=== PATIENT | female | born 1960 | race Two or more races ===

== ENCOUNTER → 2019-09-15 | Outpatient (REF) | payer BC | LOC: M SFHCWAGY 09:42 | PROVIDERS: ATTEND Nurse Practitioner Family | DX: Z12.4 Encounter for screening for malignant neoplasm of cervix (principal); R87.613 High grade squamous intraepithelial lesion on cytologic smear of cervix (HGSIL) | CPT/HCPCS: 87624; G0123 ==

== ENCOUNTER → 2019-09-15 | Outpatient (CLI) | payer BC ==
--- NOTE | 2019-09-15 17:15 | REPMRS ---
Patient History The patient states she had a clinical breast exam in September 2019. Patient is postmenopausal. Family history of unknown cancer in father. Digital Woman Screen Mammo: September 15, 2019 - Exam #: [id number] Bilateral CC and MLO view(s) were taken. Technologist: Susi Arvizu, Technologist No prior studies available for comparison. FINDINGS: There are scattered fibroglandular densities. There is no evidence of dominant mass, architectural distortion, or grouped microcalcification typical of malignancy. 3-D tomosynthesis shows no additional findings. Assessment: BI-RADS/ACR category 1 mammogram. Negative Mammogram. Recommendation Routine screening mammogram of both breasts in 1 year (for women over age 40). This patient's Lifetime Breast Cancer RIsk is estimated at 5.0 %. This mammogram was interpreted with the aid of an FDA-approved computer-aided dectection system. Electronically Signed By: Nelson El MD 09/15/19 1974
== END ==
LOC: M WHC 13:56
PROVIDERS: ATTEND Nurse Practitioner Family
DX: Z12.31 Encounter for screening mammogram for malignant neoplasm of breast (principal); Z78.0 Asymptomatic menopausal state

== ENCOUNTER → 2019-11-16 | Outpatient (REF) | payer BC | LOC: M SFHCWAGY 07:48 | PROVIDERS: ATTEND Obstetrics & Gynecology | DX: R87.613 High grade squamous intraepithelial lesion on cytologic smear of cervix (HGSIL) (principal) ==

== ENCOUNTER → 2020-01-25 | Outpatient (CLI) | payer BC ==
[~2020-01-25] MED LIST: BENA25CA4 PO
== END ==
LOC: M LABSMTC 12:35
PROVIDERS: ATTEND Anesthesiology
DX: Z01.818 Encounter for other preprocedural examination (principal); Z11.59 Encounter for screening for other viral diseases
CPT/HCPCS: C9803; U0002

== ENCOUNTER 2020-01-29 11:06 | Day surgery (SDC) | payer BC ==
[~2020-01-29] VITALS: Ht 149.9 cm; Wt 56.2 kg
[~2020-01-29 11:06] MED LIST changes: -BENA25CA4 PO; +LR 1,000 ML IV ONE
[2020-01-29] MEDS ORDERED: BENA25CA4 PO (11:46)
[2020-01-29 11:47] LABS: HEMATOCRIT 43.3 % (36.0-47.0); HEMOGLOBIN 13.9 g/dl (12.0-15.5); MEAN CORPUSCULAR HEMOGLOBIN 27.5 pg (27.0-33.0); MEAN CORPUSCULAR HGB CONC 32.1 g/dl (32.0-36.5); MEAN CORPUSCULAR VOLUME 85.7 fl (80.0-96.0); PLATELET COUNT, AUTOMATED 296 10^3/uL (150-450); RED BLOOD COUNT 5.05 10^6/uL (4.00-5.40); WHITE BLOOD COUNT 6.7 10^3/uL (4.0-10.0)
[2020-01-29] MEDS ORDERED: propofoL 200 MG/20 ML VIAL As Ordered ONE (12:46)
[2020-01-29] MEDS ORDERED: LIDOCAINE 2% 100MG/5ML SDV (FOR ANES.) As Ordered ONE (12:46)
[2020-01-29] MEDS ORDERED: fentaNYL 100 MCG/2 ML INJECTION (J3010) As Ordered ONE (12:47)
[2020-01-29] MEDS ORDERED: MIDAZOLAM INJ 2MG/2ML VIAL (J2250 PER 1MG) As Ordered ONE (12:47)
[2020-01-29] MEDS ORDERED: LIDOCAINE W/EPINEPHRINE 1% 20ML VIAL As Ordered ONE (13:10)
[2020-01-29] MEDS ORDERED: IODINE STRONG SOLN 15 ML BTL As Ordered ONE (13:11)
--- NOTE | 2020-01-29 13:27 | ROOPDOC ---
[facility] Report Of Operation Report of Operation DATE OF PROCEDURE: 01/29/20 PREOPERATIVE DIAGNOSIS: Cervical dysplasia. POSTOPERATIVE DIAGNOSIS: Cervical dysplasia. PROCEDURE PERFORMED: Loop electrosurgical excision procedure (LEEP). SURGEON: Lucita Baxter MD DIRECTOR NURSES' REGISTRY: None. ANESTHESIA: General. ESTIMATED BLOOD LOSS: 5 mL. INTRAVENOUS FLUIDS: 600 mL of Lactated Ringer's solution. URINE OUTPUT: Not obtained. PREOPERATIVE ANTIBIOTICS: None. OPERATIVE FINDINGS: Patient with atrophic appearing cervix, completely flush to the vagina. SPECIMENS: Cervical LEEP biopsy. DESCRIPTION OF OPERATION: After informed consent was obtained and written consent was reviewed, the patient was brought to the operating room where general anesthesia was obtained. She was then placed in lithotomy position. A time out in the operating room was then performed identifying the patient, procedure to be performed as well as drug allergies. A bivalve speculum was then placed revealing the cervix. The anterior lip of the cervix was grasped with a insulated single tooth tenaculum. cervical loop was then used to perform the LEEP procedure, coring out the endocervical canal. Specimen was then obtained and sent to pathology. Cautery was applied to the cervical LEEP bed. Hemostasis was achieved. Monsel solution was applied over the incision site. The single tooth tenaculum was then removed along with speculum. The patient was then taken out of lithotomy position, was awakened from general anesthesia and taken to the recovery in stable condition. Counts were correct. LUCITA BAXTER MD. Jan 29, 2020 13:27
[2020-01-29] MEDS ORDERED: ONDANSETRON 4MG/2ML VIAL As Ordered ONE (14:02)
[2020-01-29] MEDS ORDERED: dexameTHASONE 4 MG/ML 1ML VIAL (J1100 PER 1MG) As Ordered ONE (14:02)
[2020-01-29] MEDS ORDERED: ONDANSETRON 4MG/2ML VIAL IV PRN (15:00)
[2020-01-29] MEDS ORDERED: LR 1,000 ML IV SCH (15:00)
[2020-01-29] MEDS ORDERED: oxyCODONE 5MG TAB PO PRN (15:00)
[2020-01-29] MEDS ORDERED: HYDROMORPHONE HCL 0.5 MG/ 0.5 ML SYRINGE (J1170 PER 1) IV PRN (15:00)
[2020-01-29] MEDS ORDERED: fentaNYL 100 MCG/2 ML INJECTION (J3010) IV PRN (15:00)
[2020-01-29 15:11] VITALS: BP 133/76
[2020-01-29] MEDS ORDERED: KETOROLAC 30 MG/ML 1ML VIAL IV SCH (20:00)
== END 2020-01-29 15:34 | disposition home or self-care (01) ==
LOC: M SDC 11:06
PROVIDERS: ATTEND Obstetrics & Gynecology
DX: D06.9 Carcinoma in situ of cervix, unspecified (principal)
CPT/HCPCS: 36415; 57522; 85027; 86850; 86900; 86901; 88305; 88307; J1100; J2250; J2405; J3010

== ENCOUNTER 2020-03-01 10:41 | Emergency (ER) | payer BC ==
[~2020-03-01] VITALS: Ht 137.2 cm; Wt 57.2 kg
[~2020-03-01 10:41] MED LIST changes: +BENA25CA4 PO; -LR 1,000 ML IV ONE
--- NOTE | 2020-03-01 11:49 | REPVR ---
PROCEDURE INFORMATION: Exam: XR Right Ribs with PA Chest, 3 Views Exam date and time: 03/01/2020 11:25 AM Age: 59 years old Clinical indication: Chest wall pain; Right; Additional info: Trauma mid anterior/lat ribs TECHNIQUE: Imaging protocol: XR Right ribs 3 views with PA chest. COMPARISON: OR CHEST 2 VIEW 10/05/2017 2:46 PM FINDINGS: Lungs: Unremarkable. No consolidation. Pleural space: Unremarkable. No pleural effusion. No pneumothorax. Heart/Mediastinum: Unremarkable. No cardiomegaly. Bones/joints: Unremarkable. IMPRESSION: No acute findings. Electronically signed by: Ricardo Tee On 03/01/2020 11:49:53 AM
--- NOTE | 2020-03-01 11:50 | REPVR ---
PROCEDURE INFORMATION: Exam: XR Right Knee Exam date and time: 03/01/2020 11:25 AM Age: 59 years old Clinical indication: Injury or trauma; Fall; Initial encounter; Swelling (edema); Knee; Right; Additional info: Trauma mid anterior/lat ribs TECHNIQUE: Imaging protocol: XR Right knee. Views: 4 or more views. COMPARISON: No relevant prior studies available. FINDINGS: Bones/joints: No fracture. Mild marginal osteophytic spurring. Small effusion. Soft tissues: Normal. IMPRESSION: No acute findings. Electronically signed by: Ricardo Tee On 03/01/2020 11:51:03 AM
[2020-03-01 12:12] VITALS: BP 133/95
== END 2020-03-01 12:19 | disposition home or self-care (01) ==
LOC: M ED 10:41
DX: S20.211A Contusion of right front wall of thorax, initial encounter (principal); S89.91XA Unspecified injury of right lower leg, initial encounter; W10.8XXA Fall (on) (from) other stairs and steps, initial encounter; Y92.018 Other place in single-family (private) house as the place of occurrence of the external cause; I10 Essential (primary) hypertension; E11.9 Type 2 diabetes mellitus without complications

== ENCOUNTER → 2020-07-29 | Outpatient (CLI) | payer BC ==
[2020-07-29 11:41] LABS: BASO % 0.2 % (0.0-1.0); HEMATOCRIT 44.3 % (36.0-47.0); HEMOGLOBIN 13.7 g/dl (12.0-15.5); LYMPH # 2.1 10^3/uL (1.5-5.0); LYMPH % 43.2 % (24.0-44.0); MEAN CORPUSCULAR HEMOGLOBIN 26.7 pg (27.0-33.0); MEAN CORPUSCULAR HGB CONC 30.9 g/dl (32.0-36.5); MEAN CORPUSCULAR VOLUME 86.2 fl (80.0-96.0); MONO # 0.4 10^3/uL (0.0-0.8); MONO % 7.9 % (0.0-5.0); NEUTROPHILS # 2.4 10^3/uL (1.5-8.5); NEUTROPHILS % 48.5 % (36.0-66.0); PLATELET COUNT, AUTOMATED 245 10^3/uL (150-450); RED BLOOD COUNT 5.14 10^6/uL (4.00-5.40); WHITE BLOOD COUNT 4.9 10^3/uL (4.0-10.0)
[2020-07-29 12:51] LABS: ALBUMIN 3.4 GM/DL (3.2-5.2); ALT/SGPT 21 U/L (12-78); BILIRUBIN,TOTAL 0.5 MG/DL (0.2-1.0); BLOOD UREA NITROGEN 16 MG/DL (7-18); CALCIUM LEVEL 9.4 MG/DL (8.8-10.2); CARBON DIOXIDE LEVEL 28 MEQ/L (21-32); CHLORIDE LEVEL 98 MEQ/L (98-107); CHOLESTEROL LEVEL 168 MG/DL (<200); CREATININE FOR GFR 0.67 MG/DL (0.55-1.30); FREE T4 1.11 NG/DL (0.76-1.46); GLOMERULAR FILTRATION RATE > 60.0 (>45); GLUCOSE, FASTING 331 MG/DL (70-100); HDL CHOLESTEROL 48 MG/DL (>40); LDL CHOLESTEROL 105 MG/DL (<100); NON-HDL-C 120 MG/DL; POTASSIUM SERUM 3.8 MEQ/L (3.5-5.1); SODIUM LEVEL 135 MEQ/L (136-145); THYROID STIMULATING HORMONE 0.975 uIU/ML (0.358-3.740); TOTAL PROTEIN 7.8 GM/DL (6.4-8.2); TRIGLYCERIDES LEVEL 77 MG/DL (<150)
[2020-07-29 15:27] LABS: ESTIMATED AVERAGE GLUCOSE 355 MG/DL (60-110)
[2020-07-29 15:31] LABS: HEMOGLOBIN A1c > 14.0 %
== END ==
LOC: M WUC 08:56
PROVIDERS: ATTEND Nurse Practitioner Family
DX: R63.4 Abnormal weight loss (principal); Z13.220 Encounter for screening for lipoid disorders; Z13.1 Encounter for screening for diabetes mellitus

== ENCOUNTER → 2020-08-05 | Outpatient (CLI) | payer SELFPAY | LOC: M LABSMTC 10:25 | PROVIDERS: ATTEND Pediatrics | DX: Z20.828 Contact with and (suspected) exposure to other viral communicable diseases (principal) ==

== ENCOUNTER → 2020-12-16 | Outpatient (CLI) | payer BC ==
[2020-12-16 19:37] LABS: HEMOGLOBIN A1c 7.1 %
== END ==
LOC: M WUC 12:02
PROVIDERS: ATTEND Nurse Practitioner Family
DX: E11.65 Type 2 diabetes mellitus with hyperglycemia (principal)